=== PATIENT | female | born 1965 ===

== ENCOUNTER 2024-11-23 02:48 | Emergency (ER) | payer SELFPAY ==
[2024-11-23 02:53] VITALS: BP 116/76; BMI 17.8
[2024-11-23 03:00] VITALS: BP 91/61
--- NOTE | 2024-11-23 03:29 | EDRN ---
Patient yelling out 'uber me back to [place]' explained to patient we do not have the ability she would need to get a ride there, patient continues to yell out random things, explained she doesn't need to be yelling and to use the call [place].
[2024-11-23 04:00] VITALS: BP 94/56
[2024-11-23 05:00] VITALS: BP 102/62
[2024-11-23 06:00] VITALS: BP 95/65
--- NOTE | 2024-11-23 06:50 | ED.GENMED ---
History of Present Illness
General
Chief Complaint: Alcohol Problem
Source: patient
Time Seen by Provider: 11/23/24 06:07
History of Present Illness
History of Present Illness:
Note:
CHIEF COMPLAINT(S)
No current complaints mentioned by the patient.
HISTORY OF PRESENT ILLNESS
The patient is a 59-year-old female who reports drinking alcohol yesterday while on a train with a friend, possibly engaging in drug use. She currently offers no specific medical complaints but has a history of anxiety and participates in a support
group. She reports no chest pain or fever. During the initial examination, she was easily arousable, without respiratory distress, and had a non-tender and non-distended abdomen.
SOCIAL HISTORY
The patient admitted to drinking alcohol and possibly using drugs with a friend.
PHYSICAL EXAM
General: Alert, no acute distress.
Skin: Warm, dry.
Head: Normocephalic, atraumatic.
Neck: Supple, trachea midline.
Eye, Ears, Nose, Mouth, and Throat: Poor dentition. Oral mucosa moist.
Cardiovascular: Normal peripheral perfusion, no edema.
Respiratory: Non-labored respirations.
Gastrointestinal: Abdomen non-distended, non-tender.
Back: Normal range of motion, normal alignment.
Musculoskeletal: Normal range of motion, normal strength.
Neurological: Alert and oriented to person, place, time, and situation. No focal motor deficits.
Psychiatric: Cooperative, appropriate mood and affect.
DIFFERENTIAL DIAGNOSIS
The Differential Diagnosis includes, in no particular order and is not limited to:
1. Alcohol intoxication
2. Drug intoxication
3. Anxiety disorder
4. Depression
5. Hypertension
6. Dehydration
7. Substance use disorder
8. Gastroesophageal reflux disease (GERD)
9. Viral infection
10. Hypoglycemia
Disposition:
SUMMARY OF ENCOUNTER
The patient is a 59-year-old female with a history of homelessness who presented to the emergency department after a reported episode of alcohol consumption. She was seen primarily for evaluation after admitting to alcohol use. She had no specific
medical complaints at the time of the visit. Her physical examination was largely unremarkable, with no acute distress noted, and her vital signs were stable. Given the lack of significant findings or medical complaints, further workup was not
deemed necessary.
DISPOSITION
Discharge.
ASSESSMENT
The patient does not present with immediate medical concerns but has a social history of alcohol use and homelessness, which could potentially complicate her health status.
PLAN
Since the patient showed no acute medical issues and her vital signs were normal, discharge with recommendations for social support and potential follow-up with community resources was considered appropriate.
MEDICAL DECISION MAKING
- Number and Complexity of Problems Addressed: Chronic conditions affecting care include homelessness and the history of alcohol use. Differential diagnosis includes alcohol intoxication, drug intoxication, anxiety disorder, depression,
hypertension, dehydration, substance use disorder, GERD, viral infection, and hypoglycemia.
- Risk:
Consideration of Admission/Observation: Escalation of care including admission/observation was considered given the complexity and risk of the patients presenting complaint, exam findings, and her underlying comorbidities. However, ultimately she
was deemed safe for outpatient management with close follow-up. Reasoning: Work-up reassuring, does not reveal any acute life/organ-threatening processes, patients symptoms well controlled upon reevaluation, reexamination is reassuring, vitals are
stable, patient agreeable with discharge, reliable for follow-up.
DIAGNOSIS
Z72.89 - Other problems related to lifestyle (Alcohol use)
Z59.0 - Homelessness
Phy Exam
Physical Exam
Physical Exam:
.
Scores
Withdrawal Assessment of Alcohol
Withdrawal Assessment Completed?: Not applicable
Course
Vital Signs
Initial and Last Documented VS:
Initial Vital Signs
Pulse Ox
96
11/23/24 02:52
Last Documented Vital Signs
Temp Pulse Resp BP Pulse Ox
98.6 F 103 25 95/65 97
11/23/24 02:53 11/23/24 06:45 11/23/24 06:45 11/23/24 06:00 11/23/24 06:51
*Pulse Oximetry
SaO2: 97
Oxygen Mode of Delivery: Room air
Patient hypoxic: no
*Critical Care Note
Total Time (30-74mins, 75-104mins- exclusive of procedures): Not Applicable
ED Attending Note
-
Portions of this chart may have been created with voice recognition software.� Occasional wrong word or��sound alike� substitutions may have occurred due to the inherent limitations of voice recognition software.
Discharge Plan
Departure
Patient Disposition: Home (Routine Discharge)
Date of Disposition: 11/23/24
Time of Disposition: 06:50
Patient with high blood pressure during this ER visit?: No
Discharge Problem:
Alcohol abuse
Instructions: Drug Misuse and Addiction (DC), Alcohol Use Disorder (DC)
Prescriptions:
No Action
No Current Medications
0
Activity Restrictions/Additional Instructions:
Please follow-up with your doctors in the next 1 week. Please refrain from alcohol and drug use. Return immediately for fevers, vomiting, chest pain, abdominal pain or any other concerns.
Interventions
Interventions:
*Risk Screen - Suicide Last Done: 11/23/24 02:53
*General Assessment Last Done: 11/23/24 02:53
*Neglect/Abuse Screening Last Done: 11/23/24 02:53
*ED- Fall Risk Assessment Last Done: 11/23/24 02:53
*ED COVID-19 Vaccine History Last Done: 11/23/24 02:53
*ED Influenza Vaccine History Last Done: 11/23/24 02:53
*Nursing Disposition Last Done: 11/23/24 07:15
ED- Neurological Assessment Last Done: 11/23/24 04:17
ED-Psychological Assessment Last Done: 11/23/24 04:17
Discharge Date and Time
Discharge Date/Time: 11/23/24 07:17
Print Language: SERBIAN
== END 2024-11-23 07:17 | disposition home or self-care (01) ==
LOC: EMR 02:48
PROVIDERS: EMERGENCY PHYSICIAN Emergency Medicine
DX: F10.10 Alcohol abuse, uncomplicated (principal); Z59.00 Homelessness unspecified; Z72.89 Other problems related to lifestyle
CPT/HCPCS: 99282

== ENCOUNTER 2024-11-23 08:12 | Emergency (ER) | payer SELFPAY ==
[2024-11-23 08:14] VITALS: BP 104/68
--- NOTE | 2024-11-23 08:33 | ED.GENMED ---
History of Present Illness
General
Chief Complaint: Anxiety
Source: patient and ambulance crew
Time Seen by Provider: 11/23/24 08:33
History of Present Illness
History of Present Illness:
59-year-old female who was just discharged from this emergency department within the previous 1 hour who re-presents after a bystander called 9 1 because she was sitting out in the street. The patient states she was looking for a ride back to
[place] and that she needs a ride back to [place] because she does not have any money. Patient was seen earlier after she admitted to alcohol and drug use. Patient has no new medical complaints. Brought here by EMS.
Past History
Past History
ED Past Medical History: Other (Substance abuse, wisdom teeth surgery)
Phy Exam
Physical Exam
Physical Exam:
CONSTITUTIONAL Vital signs reviewed, Patient alert and oriented to person, place and time. Poor dentition
HEAD atraumatic, normocephalic.
EYES eyelids normal to inspection, Extraocular muscles intact, Conjunctiva normal, Sclera normal.
NECK normal range of motion, Trachea midline, no jugular venous distention.
RESP no respiratory distress
BACK No obvious deformities
UPPER EXTREMITY Gross Range of motion normal, gross motor strength normal
LOWER EXTREMITY Gross range of motion normal, Gross motor strength normal
NEURO Speech normal, No focal motor deficits include, [place] coma scale 15, Memory normal, Cranial Nerves intact to screening exam.
SKIN Skin warm, dry, and normal in color.
PSYCHIATRIC Patient oriented to person place and time, Normal affect.
Course
Vital Signs
Initial and Last Documented VS:
Initial Vital Signs
Temp Pulse Resp BP Pulse Ox
98.2 F 85 16 104/68 98
11/23/24 08:14 11/23/24 08:14 11/23/24 08:14 11/23/24 08:14 11/23/24 08:14
Last Documented Vital Signs
Temp Pulse Resp BP Pulse Ox
98.2 F 85 16 104/68 98
11/23/24 08:14 11/23/24 08:14 11/23/24 08:14 11/23/24 08:14 11/23/24 08:14
*Pulse Oximetry
SaO2: 98
Oxygen Mode of Delivery: Room air
Patient hypoxic: no
*Critical Care Note
Total Time (30-74mins, 75-104mins- exclusive of procedures): Not Applicable
Data Reviewed
Further Testing Considered But Not Given:
Consider labs with no acute medical complaints
Patient Management
Escalation/DeEscalation of care consider admission/obs:
Patient again presents to the emergency department. She was recently just discharged and only back because a bystander called an ambulance. No medical complaints. Charge nurse will obtain a cab voucher to the train station
ED Attending Note
-
Portions of this chart may have been created with voice recognition software.� Occasional wrong word or��sound alike� substitutions may have occurred due to the inherent limitations of voice recognition software.
Discharge Plan
Departure
Patient Disposition: Home (Routine Discharge)
Date of Disposition: 11/23/24
Time of Disposition: 08:36
Patient with high blood pressure during this ER visit?: No
Discharge Problem:
Substance abuse, Homelessness
Prescriptions:
No Action
No Current Medications
0
Discharge Date and Time
Print Language: ISRAELI
== END 2024-11-23 10:10 | disposition home or self-care (01) ==
LOC: EMR 08:12
PROVIDERS: EMERGENCY PHYSICIAN Emergency Medicine
DX: F19.10 Other psychoactive substance abuse, uncomplicated (principal); Z59.00 Homelessness unspecified; F41.9 Anxiety disorder, unspecified
CPT/HCPCS: 99282